=== PATIENT | female | born 1980 | race Hispanic/Latino ===

== ENCOUNTER 2023-10-11 08:16 | Emergency (ER) | payer SELFPAY ==
--- NOTE | 2023-10-11 08:38 | EDPHYS ---
Physician Documentation [facility] Name: Jessica Duarte Age: 43 yrs Sex: Female : 1980 Arrival Date: 10/11/2023 Time: 08:16 Bed 5 Private MD: ED Physician Dewey Ball HPI: 10/10 12:26 This 43 yrs old Female presents to ER via Ambulatory with complaints of Finger ms3 Injury. 12:26 43-year-old female with no past medical history presents to the emergency department ms3 for left middle finger laceration that occurred at 8 AM while cutting apples at work. Patient states her discomfort is an 8/10. Patient does not remember the last time she received a tetanus vaccine. Historical: - Allergies: 08:25 No Known Allergies; iw - Home Meds: 08:25 None [Active]; iw - PMHx: 08:25 None; iw - Immunization history:: Adult Immunizations unknown, Last tetanus immunization: > 10 years ago. - Infectious Disease History:: Denies. - Social history:: Smoking status: unknown. ROS: 12:26 Constitutional: Negative for fever, and chills. Neck: Negative for injury, pain, and ms3 swelling, Cardiovascular: Negative for chest pain, and palpitations. Respiratory: Negative for shortness of breath, cough, wheezing, and pleuritic chest pain, Abdomen/GI: Negative for abdominal pain, nausea, vomiting, diarrhea, and constipation, MS/Extremity: Negative for injury and deformity, 12:26 Skin: Positive for laceration(s), Exam: 12:26 Constitutional: This is a well developed, well nourished patient who is awake, alert, ms3 and in no acute distress. Head/Face: Normocephalic, atraumatic. Cardiovascular: Regular rate and rhythm with a normal S1 and S2. No gallops, murmurs, or rubs. Normal PMI, no JVD. No pulse deficits. Respiratory: Lungs have equal breath sounds bilaterally, clear to auscultation and percussion. No rales, rhonchi or wheezes noted. No increased work of breathing, no retractions or nasal flaring. Abdomen/GI: Soft, non-tender, with normal bowel sounds. No distension or tympany. No guarding or rebound. No evidence of tenderness throughout. 12:26 MS/ Extremity: Pulses equal, no cyanosis. Neurovascular intact. Full, normal range of motion. 12:26 Skin: injury, avulsion(s), a small of the Left lateral middle finger, Vital Signs: 08:25 BP 129 / 76; Pulse 100; Resp 16; Pulse Ox 100% on R/A; iw MDM: 08:36 Patient medically screened. ms3 12:26 Differential diagnosis: Skin avulsion versus nail injury. Data reviewed: vital signs, ms3 nurses notes, and as a result, I will discharge patient. I considered the following discharge prescriptions or medication management in the emergency department Medications were administered in the Emergency Department. See MAR. Counseling: I had a detailed discussion with the patient and/or guardian regarding the historical points, exam findings, and any diagnostic results supporting the discharge/admit diagnosis, the need for outpatient follow up, to return to the emergency department if symptoms worsen or persist or if there are any questions or concerns that arise at home. Special discussion: I discussed with the patient/guardian in detail that at this point there is no indication for admission to the hospital. It is understood, however, that if the symptoms persist or worsen the patient needs to return immediately for re-evaluation. ED course: Patient given Boostrix injection while in the emergency department. Patient to follow-up with primary care physician in 2 to 3 days. Patient understands agrees with plan. All questions were answered. Wound hemostatic at time of discharge. Visit translated by Keya [id number]. Administered Medications: 09:03 Drug: Boostrix Tdap IM 0.5 ml IM once; as a single dose Route: IM; Site: right deltoid; ph 09:15 Follow up: Response: (VIS) Vaccine information sheet provided today. Questions and/or ph concerns addressed. VIS edition date: Sep 19, 2020.; No adverse reaction Disposition Summary: 10/11/23 08:37 Discharge Ordered Notes: Location: Home ms3 Condition: Stable ms3 Diagnosis - Laceration without foreign body of left middle finger with damage to nail ms3 Followup: ms3 - With: Joseluis Montgomery, DO - When: 2 - 3 days - Reason: Recheck today's complaints Discharge Instructions: - Discharge Summary Sheet ms3 - Deep Skin Avulsion ms3 Forms: - Work release form ph - Medication Reconciliation Form ms3 - Antibiotic Education ms3 - Prescription Opioid Use ms3 - Patient Portal Instructions ms3 - Leadership Thank You Letter ms3 Signatures: Cathy Steele, RN RN Terra Kang RN RN Dewey Ball DO DO ms3
--- NOTE | 2023-10-11 08:38 | ER ---
Nurse's Notes [facility] Name: Jessica Duarte Age: 43 yrs Sex: Female : 1980 Arrival Date: 10/11/2023 Time: 08:16 Bed 5 Private MD: Diagnosis: Laceration without foreign body of left middle finger with damage to nail Presentation: 10/10 08:24 Chief complaint: Patient states: sliced the tip of left middle finger off while cutting iw apples at work. Coronavirus screen: At this time, the client does not indicate any symptoms associated with coronavirus-19. Ebola Screen: No symptoms or risks identified at this time. Initial Sepsis Screen: Does the patient meet any 2 criteria? No. Patient's initial sepsis screen is negative. Does the patient have a suspected source of infection? No. Patient's initial sepsis screen is negative. Risk Assessment: Do you want to hurt yourself or someone else? Patient reports no desire to harm self or others. Onset of symptoms was October 11, 2023. 08:24 Method Of Arrival: Ambulatory iw 08:24 Acuity: ASHER 4 iw Triage Assessment: 08:35 General: Appears in no apparent distress. well groomed, Behavior is calm, cooperative. ph Injury Description: Avulsion sustained to left middle fingernail is partial. Historical: - Allergies: 08:25 No Known Allergies; iw - Home Meds: 08:25 None [Active]; iw - PMHx: 08:25 None; iw - Immunization history:: Adult Immunizations unknown, Last tetanus immunization: > 10 years ago. - Infectious Disease History:: Denies. - Social history:: Smoking status: unknown. Screenin:30 [facility] ED Fall Risk Assessment (Adult) History of falling in the last 3 months, ph including since admission No falls in past 3 months (0 pts) Confusion or Disorientation No (0 pts) Intoxicated or Sedated No (0 pts) Impaired Gait No (0 pts) Mobility Assist Device Used No (0 pt) Altered Elimination No (0 pt) Score/Fall Risk Level 0 - 2 = Low Risk Oriented to surroundings, Maintained a safe environment, Hourly rounding (assess needs \T\ fall precautionary measures) done. Abuse screen: Denies threats or abuse. Denies injuries from another. Nutritional screening: No deficits noted. Tuberculosis screening: No symptoms or risk factors identified. Assessment: 08:35 General: Appears in no apparent distress. Behavior is calm, cooperative. Pain: ph Complains of pain in left middle fingernail. Neuro: Level of Consciousness is awake, alert, obeys commands, Oriented to person, place, time, situation. Musculoskeletal: Circulation, motion, and sensation intact. Range of motion: intact in all extremities. Injury Description: Avulsion sustained to left middle fingernail is partial was sustained less than 30 minutes ago. Vital Signs: 08:25 BP 129 / 76; Pulse 100; Resp 16; Pulse Ox 100% on R/A; iw ED Course: 08:16 Patient arrived in ED. im 08:17 Terra Kang, MARIAMA is Primary Nurse. ph 08:19 Dewey Ball DO is Attending Physician. ms3 08:25 Triage completed. iw 08:30 Patient has correct armband on for positive identification. Call light in reach. Side ph rails up X 1. Pulse ox on. NIBP on. Door closed. Noise minimized. 08:35 Arm band placed on Patient placed in an exam room. ph 08:36 Joseluis Montgomery DO is Referral Physician. ms3 08:50 Irrigation of avulsion on left middle fingernail irrigated with Hibiclens solution ph Patient tolerated well. 08:51 Dressings: Surgicel and 4x4s to avulsion of tip of L middle digit, wrapped in Coban. ph 09:00 No provider procedures requiring assistance completed. Patient did not have IV access ph during this emergency room visit. Administered Medications: 09:03 Drug: Boostrix Tdap IM 0.5 ml IM once; as a single dose Route: IM; Site: right deltoid; ph 09:15 Follow up: Response: (VIS) Vaccine information sheet provided today. Questions and/or ph concerns addressed. VIS edition date: Sep 19, 2020.; No adverse reaction Medication: 09:00 Vaccine Information Statement (VIS) provided today. Questions and/or concerns ph addressed. VIS edition date: September 2020. Outcome: 08:37 Discharge ordered by . ms3 09:15 Patient left the ED. ph 09:15 Discharged to home ambulatory, with friend, with significant other, ph 09:15 Condition: good 09:15 Discharge instructions given to patient, significant other, Instructed on discharge instructions, follow up and referral plans. wound care, Demonstrated understanding of instructions, follow-up care, wound care, Signatures: Ctahy Steele RN RN Terra Kang RN RN Dewey Ball DO DO ms3 Carine Hoskins
[2023-10-11] MEDS ORDERED: TDAP (DIPHTH,PERTUSS(ACELL),TET VAC) 0.5 ML VIAL IMVAC ONE (08:49)
[2023-10-11 09:19] VITALS: BP 129/76; O2SAT 100
== END 2023-10-11 09:15 | disposition home or self-care (01) ==
LOC: ER 08:16
DX: S61.313A Laceration without foreign body of left middle finger with damage to nail, initial encounter (principal)
CPT/HCPCS: 96372; 99284